=== PATIENT | male | born 1965 | race Caucasian/White ===

== ENCOUNTER 2020-01-01 10:50 | Emergency (ER) | payer BC ==
[~2020-01-01] VITALS: Ht 175.3 cm; Wt 145.4 kg
[2020-01-01 11:01] VITALS: BP 141/88
[2020-01-01] MEDS ORDERED: acetaminophen 325mg tablet PO ONE (11:05)
== END 2020-01-01 12:38 | disposition home or self-care (01) ==
LOC: ER 10:51
DX: B34.9 Viral infection, unspecified (principal); R05 Cough; R50.9 Fever, unspecified; R43.8 Other disturbances of smell and taste; Z20.828 Contact with and (suspected) exposure to other viral communicable diseases; I10 Essential (primary) hypertension; Z88.8 Allergy status to other drugs, medicaments and biological substances
CPT/HCPCS: 36415; 87635; 99283; C9803